=== PATIENT | female | born 1950 | race African-American/Black ===

== ENCOUNTER 2017-12-01 10:36 | Emergency (ER) | payer MEDICARE ==
[~2017-12-01] VITALS: Ht 167.6 cm; Wt 75.0 kg
[~2017-12-01 10:36] MED LIST: ADVA250A INH; ESTR.625; INDO50 PO; LEVO.1 PO; METO100T PO; PRED20 PO; PROC90TA PO
[2017-12-01 10:43] VITALS: BP 170/96; PULSE 103; RESP 16; TEMP 98.6; O2SAT 100
[2017-12-01] MEDS ORDERED: LEVO.1 PO (10:49)
[2017-12-01] MEDS ORDERED: AMLO10TA2 PO (10:49)
[2017-12-01] MEDS ORDERED: LINA145C PO (10:49)
[2017-12-01 10:51] VITALS: BP 160/89; PULSE 94; RESP 18; TEMP 98.6
[2017-12-01] MEDS ORDERED: SODIUM CHLOR 0.9% 1000 ML INJ 1,000 ML IV SCH (11:01)
[2017-12-01 11:04] VITALS: O2SAT 97
[2017-12-01] MEDS ORDERED: SODIUM CHLORIDE 0.9% FLUSH 10 ML FLUSH IV FLUSH PRN (11:15)
[2017-12-01] MEDS ORDERED: ONDANSETRON ODT 4 MG TAB PO ONE (11:15)
--- NOTE | 2017-12-01 11:17 | PD ---
HPI Chief Complaint: GI Complaint Time Seen by Provider: 10:49 Travel History International Travel<30 days: No Contact w/Intl Traveler<30days: No Traveled to known affect area: No History of Present Illness HPI Patient is a 67-year-old female with a history of irritable bowel syndrome presents emergency department for evaluation of diarrhea and abdominal cramping going on for the past 4 months. Patient states she thinks she caught a virus that she can get rid of. She also noticed that she was feeling weak this morning almost to the point like she was going to pass out but has not done so. Denies any chest pain shortness of breath palpitations. She states her stools been watery and green. No fevers mild nausea but no vomiting. She states that the symptoms that caused her to come into the emergency department today after 4 months was that she felt like she was going to pass out as well as her daughter had also complaining of similar symptoms. Symptoms moderate, for the past 4 months, waxing and waning, context and associated signs and symptoms as above. 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) Heparin Induced Thrombocytopen: No Hypertension: Yes Immune Disorder: No Implanted Vascular Access Dvce: Yes Musculoskeletal: Yes Neurologic: No Psychiatric: No Reproductive: No Respiratory: Yes (ASTHMA) Myocardial Infarction: No Thyroid Disease: Yes (RADIATED YEARS AGO DUE TO HYPERACTIVITY) PNEUMOCCOCAL Vaccine (Year): 2 ?: Not Menopausal: Yes : 3 Para: 3 Past Surgical History Coronary Artery Bypass Graft: No Genitourinary Surgery: No Gynecologic Surgery: Yes (HYSTERECTOMY) Hysterectomy: Yes (DUE TO ENDOMETRIOSIS) Other Surgery: Yes Family History Family Myocardial Infarction: No Social History Alcohol Use: Yes (OCC BEER) Tobacco Use: Yes (TRYING TO QUIT) Substance Use: Yes Allergies-Medications (Allergen,Severity, Reaction): Coded Allergies: prochlorperazine (Unverified Allergy, Severe, 02/27/17) "MAKES ME FEEL LIKE I AM GOING TO HAVE A SEIZURE" aspirin (Unverified Allergy, Mild, Nausea/Vomiting, 02/27/17) "STOMACH PAINS" penicillin G (Unverified Allergy, Mild, Hives, 02/27/17) Uncoded Allergies: SEASONAL ALLERGIES (Allergy, Mild, 10/27/08) Reported Meds & Prescriptions Reported Meds & Active Scripts Active Zofran Odt (Ondansetron Odt) 4 Mg Tab 4 Mg SL Q6HR PRN Flagyl (Metronidazole) 500 Mg Tab 500 Mg PO BID 7 Days Reported Amlodipine (Amlodipine Besylate) 10 Mg Tab 10 Mg PO DAILY Linzess (Linaclotide) 145 Mcg Cap 72 Mcg PO DAILY Synthroid (Levothyroxine Sodium) 100 Mcg Tab 100 Mcg PO DAILY Synthroid 100 mcg (Levothyroxine Sodium) 100 Mcg Tab 100 Mcg PO DAILY Metoprolol Tartrate 100 mg (Metoprolol Tartrate) 100 Mg Tab 100 Mg PO BID Premarin (Estrogens Conjugated) 0.625 Mg Tab 0.625 Mg .XX DAILY Advair Diskus 250/50 (Salmeterol Xinafoate/Fluticasone) 250 Mcg/50 Mcg Inhp 1 Puff INH BID Review of Systems Except as stated in HPI: all other systems reviewed are Neg Physical Exam Narrative GENERAL: Well-developed well-nourished no obvious distress SKIN: Focused skin assessment warm/dry. HEAD: Atraumatic. Normocephalic. EYES: Pupils equal and round. No scleral icterus. No injection or drainage. ENT: No nasal bleeding or discharge. Mucous membranes pink and moist. NECK: Trachea midline. No JVD. CARDIOVASCULAR: Regular rate and rhythm. No murmur appreciated. RESPIRATORY: No accessory muscle use. Clear to auscultation. Breath sounds equal bilaterally. GASTROINTESTINAL: Abdomen soft, non-tender, nondistended. Hepatic and splenic margins not palpable. No rebound no percussive tenderness. Normal active bowel sounds peer MUSCULOSKELETAL: No obvious deformities. No clubbing. No cyanosis. No edema. NEUROLOGICAL: Awake and alert. No obvious cranial nerve deficits. Motor grossly within normal limits. Normal speech. PSYCHIATRIC: Appropriate mood and affect; insight and judgment normal. Data Data Last Documented VS Vital Signs Date Time Temp Pulse Resp B/P (MAP) Pulse Ox O2 Delivery O2 Flow Rate FiO2 12/01/17 11:05 18 12/01/17 11:04 97 Nasal Cannula 2.00 12/01/17 10:51 98.6 94 Orders Orders Complete Blood Count With Diff (12/01/17 11:01) Comprehensive Metabolic Panel (12/01/17 11:01) Urinalysis - C+S If Indicated (12/01/17 11:01) Iv Access Insert/Monitor (12/01/17 11:01) Ecg Monitoring (12/01/17 11:01) Oximetry (12/01/17 11:01) Sodium Chlor 0.9% 1000 Ml Inj (Ns 1000 M (12/01/17 11:01) Sodium Chloride 0.9% Flush (Ns Flush) (12/01/17 11:15) Ondansetron Odt (Zofran Odt) (12/01/17 11:15) Ed Discharge Order (12/01/17 12:16) Labs Laboratory Tests Test 12/01/17 11:08 White Blood Count 6.3 TH/MM3 Red Blood Count 5.30 MIL/MM3 Hemoglobin 12.4 GM/DL Hematocrit 38.8 % Mean Corpuscular Volume 73.3 FL Mean Corpuscular Hemoglobin 23.5 PG Mean Corpuscular Hemoglobin Concent 32.0 % Red Cell Distribution Width 14.5 % Platelet Count 362 TH/MM3 Mean Platelet Volume 8.2 FL Neutrophils (%) (Auto) 52.8 % Lymphocytes (%) (Auto) 35.3 % Monocytes (%) (Auto) 6.7 % Eosinophils (%) (Auto) 4.0 % Basophils (%) (Auto) 1.2 % Neutrophils # (Auto) 3.3 TH/MM3 Lymphocytes # (Auto) 2.2 TH/MM3 Monocytes # (Auto) 0.4 TH/MM3 Eosinophils # (Auto) 0.3 TH/MM3 Basophils # (Auto) 0.1 TH/MM3 CBC Comment DIFF FINAL Differential Comment Urine Color YELLOW Urine Turbidity HAZY Urine pH 5.0 Urine Specific [place] 1.017 Urine Protein NEG mg/dL Urine Glucose (UA) NEG mg/dL Urine Ketones TRACE mg/dL Urine Occult Blood SMALL Urine Nitrite NEG Urine Bilirubin NEGATIVE Urine Leukocyte Esterase NEGATIVE Urine RBC 3 /hpf Urine WBC 3 /hpf Urine Squamous Epithelial Cells 7 /hpf Urine Hyaline Casts 6 /lpf Urine Mucus MANY /lpf Microscopic Urinalysis Comment CULT NOT INDICATED Blood Urea Nitrogen 9 MG/DL Creatinine 0.90 MG/DL Random Glucose 91 MG/DL Total Protein 8.9 GM/DL Albumin 4.4 GM/DL Calcium Level 9.2 MG/DL Alkaline Phosphatase 89 U/L Aspartate Amino Transf (AST/SGOT) 19 U/L Alanine Aminotransferase (ALT/SGPT) 19 U/L Total Bilirubin 0.6 MG/DL Sodium Level 138 MEQ/L Potassium Level 3.6 MEQ/L Chloride Level 104 MEQ/L Carbon Dioxide Level 23.0 MEQ/L Anion Gap 11 MEQ/L Estimat Glomerular Filtration Rate 75 ML/MIN MDM Medical Decision Making Medical Screen Exam Complete: Yes Emergency Medical Condition: Yes Differential Diagnosis Dehydration, electrolyte abnormality, irritable bowel syndrome, chronic abdominal cramping, acute abdomen seems highly unlikely. Narrative Course Patient room to the emergency department, her abdomen is completely benign, given her diarrhea I think C. difficile needs to be considered and will start empiric Flagyl if her labs are reassuring. Indeed her electrolytes are all within normal limits blood counts are reassuring. She does have a small trace amount of hematuria discussed that she needs to follow this up with her primary care physician and she verbalized understanding and agreement. She is stable for discharge at this time peer Diagnosis Primary Impression: Diarrhea Referrals: Carmen Luther MD Med/Other Pt SpecificInfo: Prescription(s) given Scripts Ondansetron Odt (Zofran Odt) 4 Mg Tab 4 MG SL Q6HR Y for Nausea/Vomiting, #20 TAB 0 Refills Prov: Ramsey Butler MD 12/01/17 Metronidazole (Flagyl) 500 Mg Tab 500 MG PO BID for Infection for 7 Days, #14 TAB 0 Refills Prov: Ramsey Butler MD 12/01/17 Disposition: 01 DISCHARGE HOME Condition: Stable Ramsey Butler MD December 01, 2017 11:17
[2017-12-01 11:43] LABS: AUTOMATED NEUTROPHIL # 3.3 TH/MM3 (1.8-7.7); BASOPHIL # 0.1 TH/MM3 (0-0.2); BASOPHIL % 1.2 % (0.0-2.0); EOSINOPHIL # 0.3 TH/MM3 (0-0.4); HEMATOCRIT 38.8 % (35.0-46.0); HEMOGLOBIN 12.4 GM/DL (11.6-15.3); LYMPH % 35.3 % (9.0-44.0); LYMPHOCYTE # 2.2 TH/MM3 (1.0-4.8); MEAN CELL VOLUME 73.3 FL (80.0-100.0); MEAN CORPUSCULAR HEMOGLOBIN 23.5 PG (27.0-34.0); MEAN PLATELET VOLUME 8.2 FL (7.0-11.0); MONO % 6.7 % (0.0-8.0); MONOCYTE # 0.4 TH/MM3 (0-0.9); NEUT % 52.8 % (16.0-70.0); PLATELET COUNT 362 TH/MM3 (150-450); RED CELL DISTRIBUTION WIDTH 14.5 % (11.6-17.2); WHITE BLOOD COUNT 6.3 TH/MM3 (4.0-11.0)
[2017-12-01 11:59] LABS: ALBUMIN 4.4 GM/DL (3.4-5.0); ALT (GPT) 19 U/L (10-53); BLOOD UREA NITROGEN 9 MG/DL (7-18); CALCIUM 9.2 MG/DL (8.5-10.1); CHLORIDE 104 MEQ/L (98-107); GLOMERULAR FILTRATION RATE 75 ML/MIN (>89); GLUCOSE,RANDOM 91 MG/DL (74-106); SODIUM (NA) 138 MEQ/L (136-145)
[2017-12-01 12:07] LABS: ALKALINE PHOSPHATASE 89 U/L (45-117); AST (GOT) 19 U/L (15-37); TOTAL BILIRUBIN ADULT 0.6 MG/DL (0.2-1.0); TOTAL PROTEIN 8.9 GM/DL (6.4-8.2); URINE COLOR YELLOW (YELLW/STRAW)
[2017-12-01 12:08] LABS: BILIRUBIN, URINE NEGATIVE (NEG); BLOOD, URINE SMALL (NEG); GLUCOSE,URINE NEG (NEG); KETONE, URINE TRACE mg/dL (NEG); MUCUS URINE MANY /lpf (OCC); NITRITE,URINE NEG (NEG); URINE LEUKOCYTE ESTERASE NEGATIVE (NEG)
[2017-12-01 12:09] LABS: HYALINE CAST, URINE 6 /lpf (RARE); SQUAMOUS EPITHELIAL CELL URINE 7 /hpf (0-5)
[2017-12-01] MEDS ORDERED: ZOFR4TAB3 SL (12:15)
[2017-12-01] MEDS ORDERED: METR-1 PO (12:15)
== END 2017-12-01 13:32 | disposition home or self-care (01) ==
LOC: NEPC 10:36
DX: R19.7 Diarrhea, unspecified (principal); R10.9 Unspecified abdominal pain; R53.1 Weakness; R11.0 Nausea; I10 Essential (primary) hypertension; E07.9 Disorder of thyroid, unspecified; K58.9 Irritable bowel syndrome, unspecified; J45.909 Unspecified asthma, uncomplicated; Z72.0 Tobacco use; Z87.39 Personal history of other diseases of the musculoskeletal system and connective tissue; Z86.79 Personal history of other diseases of the circulatory system; Z87.448 Personal history of other diseases of urinary system
CPT/HCPCS: 80053; 81001; 85025; 96360; 99284; J7030